=== PATIENT | male | born 1965 | race Caucasian/White ===

== ENCOUNTER 2023-07-05 00:02 | Inpatient (IN) | payer BC ==
[~2023-07-05] VITALS: Ht 182.9 cm; Wt 68.0 kg
[2023-07-05 00:15] VITALS: BP_SYST 201; PULSE 80; RESP 20; TEMP 96; O2SAT 99
[2023-07-05 00:57] LABS: BASOPHILS % (AUTO) 0.4 % (0.0-2.0); EOSINOPHILS # (AUTO) 0.1 K/uL (0.0-0.4); EOSINOPHILS % (AUTO) 1.1 % (0.0-4.0); HEMATOCRIT 39.8 % (36-54); HEMOGLOBIN 13.8 g/dL (14.0-18.0); LYMPHOCYTES # (AUTO) 1.8 K/uL (1.0-5.5); LYMPHOCYTES % (AUTO) 14.4 % (20.5-51.5); MEAN CORPUSCULAR HEMOGLOBIN 32 pg (27-31); MEAN CORPUSCULAR HGB CONC 35 % (32-36); MEAN CORPUSCULAR VOLUME 91 fL (79.0-98.0); MONOCYTES # (AUTO) 0.8 K/uL (0.0-1.0); MONOCYTES % (AUTO) 6.1 % (1.7-9.3); NEUTROPHILS # (AUTO) 9.7 K/uL (1.8-7.7); PLATELET COUNT (AUTO) 186 K/uL (130-430); RED BLOOD CELL COUNT(AUTO) 4.35 MIL/uL (4.2-6.2); RED CELL DISTRIBUTION WIDTH 13.3 % (9.0-15.0); WHITE BLOOD COUNT (AUTO) 12.4 K/uL (4.8-10.8)
[2023-07-05 01:02] LABS: BILIRUBIN,URINE NEGATIVE (NEGATIVE); CLARITY/URINE SL CLOUDY (CLEAR); COLOR,URINE YELLOW (YELLOW); GLUCOSE,URINE NEGATIVE (NEGATIVE); KETONES,URINE NEGATIVE (NEGATIVE); LEUKOCYTE ESTERASE ,URINE NEGATIVE (NEGATIVE); NITRITE, URINE NEGATIVE (NEGATIVE); PROTEIN URINE 1+ (NEGATIVE); UROBILINOGEN,URINE 0.2 (0.2-1.0)
[2023-07-05 01:03] LABS: CALCIUM 8.6 mg/dL (8.4-11.0); CREATININE 1.15 mg/dL (0.55-1.30); POTASSIUM 3.4 mmol/L (3.5-5.1)
[2023-07-05 01:08] LABS: ALBUMIN 3.8 g/dL (3.4-4.8); BILIRUBIN,DIRECT 0.1 mg/dL (0.0-0.3); TOTAL BILIRUBIN 0.2 mg/dL (0.0-1.0); TOTAL PROTEIN, SERUM 7.6 g/dL (6.4-8.3)
[2023-07-05 01:13] LABS: BLOOD, URINE TRACE (NEGATIVE)
[2023-07-05 01:14] LABS: WBC,URINE 0-3 /HPF (0-3)
[2023-07-05 01:15] LABS: BACTERIA,URINE None Seen /HPF (None Seen)
[2023-07-05] MEDS: ONDANSETRON HCL 4 MG/2 ML VIAL IVP ONE (01:47)
[2023-07-05] MEDS: MORPHINE 4 MG INJ. 4 MG/ML VIAL IVP ONE ×2 (01:47→02:14)
[2023-07-05] MEDS: KETOROLAC TROMETHAMINE 15 MG VIAL IVP ONE (01:48)
[2023-07-05] MEDS: HYDROmorphone 1 MG/ML INJ. CARTRIDGE IVP ONE ×2 (04:00→06:23)
[2023-07-05] MEDS: PIPERACILLIN/TAZO 3.375 GM in NS 50 ML IV ONE (05:40)
[2023-07-05] MEDS ORDERED: PIPERACILLIN/TAZOBACTAM 3.375 GM/VIAL (ZOSYN) IV ONE (05:42)
[2023-07-05] MEDS ORDERED: KETAMINE HCL IN 0.9 % NACL 50 MG/5 ML SYRINGE ONE (06:32)
[2023-07-05] MEDS: KETAMINE 30 MG/3 ML SYRINGE 30 MG in NS 100 ML IV ONE (06:46)
[2023-07-05] MEDS ORDERED: ACETAMINOPHEN 325 MG TABLET PO PRN ×2 (10:15)
[2023-07-05] MEDS ORDERED: ONDANSETRON HCL 4 MG/2 ML VIAL IVP PRN ×2 (10:15→13:15)
[2023-07-05] MEDS ORDERED: IPRATROPIUM BROM 0.5 MG/2.5 ML VIAL.NEB (ATROVENT) INH PRN (10:15)
[2023-07-05] MEDS ORDERED: NALOXONE HCL 0.4 MG/ML AMP (NARCAN) IVP PRN ×2 (10:15→13:15)
[2023-07-05] MEDS: amLODIPine BESYLATE 5 MG TABLET PO ONE (10:56)
[2023-07-05 11:08] VITALS: PULSE 68; O2SAT 97
[2023-07-05 11:26] VITALS: BP_SYST 161; PULSE 75; RESP 20; TEMP 98.4
[2023-07-05] MEDS: MORPHINE 2 MG/ML INJ. SYRINGE IVP PRN (11:54)
[2023-07-05 12:03] VITALS: O2SAT 98
[2023-07-05] MEDS ORDERED: fentaNYL CITRATE/PF 100 MCG/2 ML AMP ONE (12:43)
[2023-07-05] MEDS ORDERED: MIDAZOLAM HCL 2 MG/2 ML VIAL (VERSED) ONE (12:44)
[2023-07-05] MEDS ORDERED: ceFAZolin SODIUM 2 GM VIAL ONE (12:45)
[2023-07-05] MEDS ORDERED: GLYCOPYRROLATE 0.2 MG/ML VIAL ONE (12:45)
[2023-07-05] MEDS ORDERED: NEOSTIGMINE METHYLSULFATE 1 MG/ML, 10 ML VIAL ONE (12:45)
[2023-07-05] MEDS ORDERED: SUCCINYLCHOLINE CHLORIDE 20 MG/ML(QUELICIN) ONE (12:45)
[2023-07-05] MEDS ORDERED: DEXAMETHASONE SOD PHOSPHATE 4 MG/ML VIAL ONE (12:45)
[2023-07-05] MEDS ORDERED: PROPOFOL 200MG/ 20ML VIAL (DIPRIVAN) IV ONE (12:45)
[2023-07-05] MEDS ORDERED: NS 1000 ML IV.SOLN IV ONE (12:45)
[2023-07-05] MEDS ORDERED: ONDANSETRON HCL 4 MG/2 ML VIAL ONE (12:45)
[2023-07-05] MEDS ORDERED: ROCURONIUM BROMIDE 10 MG/ML (ZEMURON) ONE (12:45)
[2023-07-05] MEDS ORDERED: NS IRRIG SOLN 1000 ML IR ONE (12:45)
[2023-07-05] MEDS ORDERED: BUPIVACAINE /PF 0.25% 30 ML VIAL INJ ONE (12:45)
[2023-07-05] MEDS ORDERED: fentaNYL CITRATE/PF 100 MCG/2 ML AMP IVP PRN ×2 (13:15)
[2023-07-05] MEDS ORDERED: HYDROmorphone 1 MG/ML INJ. CARTRIDGE IVP PRN (13:15)
[2023-07-05] MEDS: NACL 0.9% 1,000 ML IV ONE (13:15)
[2023-07-05] MEDS: HYDROcodone/ACETAMIN 5-325 MG TAB (NORCO/ VICODIN) PO PRN (18:35)
[2023-07-05 20:00] VITALS: BP_SYST 156; PULSE 102; RESP 20; TEMP 98.7; O2SAT 94
[2023-07-06] VITALS: BP_SYST 128; PULSE 74; RESP 20; TEMP 98.1; O2SAT 95
[2023-07-06 05:55] LABS: BASOPHILS % (AUTO) 0.1 % (0.0-2.0); HEMATOCRIT 38.8 % (36-54); HEMOGLOBIN 13.4 g/dL (14.0-18.0); LYMPHOCYTES # (AUTO) 0.9 K/uL (1.0-5.5); LYMPHOCYTES % (AUTO) 4.6 % (20.5-51.5); MEAN CORPUSCULAR HEMOGLOBIN 32 pg (27-31); MEAN CORPUSCULAR HGB CONC 35 % (32-36); MEAN CORPUSCULAR VOLUME 92 fL (79.0-98.0); MONOCYTES # (AUTO) 1.2 K/uL (0.0-1.0); MONOCYTES % (AUTO) 6.4 % (1.7-9.3); NEUTROPHILS # (AUTO) 17.2 K/uL (1.8-7.7); NEUTROPHILS % (AUTO) 88.9 % (40.0-70.0); PLATELET COUNT (AUTO) 186 K/uL (130-430); WHITE BLOOD COUNT (AUTO) 19.4 K/uL (4.8-10.8)
[2023-07-06 06:22] LABS: ALBUMIN 3.1 g/dL (3.4-4.8); CALCIUM 7.8 mg/dL (8.4-11.0); CREATININE 0.97 mg/dL (0.55-1.30); POTASSIUM 3.8 mmol/L (3.5-5.1); TOTAL BILIRUBIN 0.7 mg/dL (0.0-1.0); TOTAL PROTEIN, SERUM 6.8 g/dL (6.4-8.3)
[2023-07-06 08:57] VITALS: BP_SYST 154; PULSE 83; RESP 18; TEMP 98.2; O2SAT 98
[2023-07-06 09:00] VITALS: O2SAT 98
[2023-07-06] MEDS: amLODIPine BESYLATE 5 MG TABLET PO SCH (09:30)
[2023-07-06] MEDS: HYDROcodone/ACETAMIN 10-325 MG TAB PO PRN (09:30)
[2023-07-06 12:30] VITALS: BP_SYST 139; PULSE 92; RESP 18; TEMP 98.4; O2SAT 96
[2023-07-06] MEDS: CEFAZOLIN SODIUM 500 MG in D5W 50 ML IV SCH (12:47)
[2023-07-06 16:55] VITALS: BP_SYST 131; PULSE 81; RESP 18; TEMP 97.9; O2SAT 96
[2023-07-06 20:16] VITALS: BP_SYST 129; PULSE 80; RESP 19; TEMP 97; O2SAT 98
[2023-07-07 00:13] VITALS: BP_SYST 128; PULSE 81; RESP 17; TEMP 97.2; O2SAT 97
[2023-07-07 01:23] VITALS: BP_SYST 128; PULSE 78; RESP 18; TEMP 97.4; O2SAT 98
[2023-07-07 05:40] LABS: BASOPHILS % (AUTO) 0.1 % (0.0-2.0); EOSINOPHILS # (AUTO) 0.1 K/uL (0.0-0.4); EOSINOPHILS % (AUTO) 0.8 % (0.0-4.0); HEMATOCRIT 38.8 % (36-54); HEMOGLOBIN 13.5 g/dL (14.0-18.0); LYMPHOCYTES # (AUTO) 2.5 K/uL (1.0-5.5); LYMPHOCYTES % (AUTO) 16.8 % (20.5-51.5); MEAN CORPUSCULAR HEMOGLOBIN 32 pg (27-31); MEAN CORPUSCULAR HGB CONC 35 % (32-36); MEAN CORPUSCULAR VOLUME 92 fL (79.0-98.0); MONOCYTES # (AUTO) 1.3 K/uL (0.0-1.0); MONOCYTES % (AUTO) 8.8 % (1.7-9.3); NEUTROPHILS # (AUTO) 10.9 K/uL (1.8-7.7); NEUTROPHILS % (AUTO) 73.5 % (40.0-70.0); PLATELET COUNT (AUTO) 174 K/uL (130-430); RED BLOOD CELL COUNT(AUTO) 4.22 MIL/uL (4.2-6.2); RED CELL DISTRIBUTION WIDTH 13.3 % (9.0-15.0); WHITE BLOOD COUNT (AUTO) 14.8 K/uL (4.8-10.8)
[2023-07-07 06:17] LABS: CREATININE 0.91 mg/dL (0.55-1.30); POTASSIUM 3.5 mmol/L (3.5-5.1); TOTAL BILIRUBIN 0.6 mg/dL (0.0-1.0); TOTAL PROTEIN, SERUM 6.7 g/dL (6.4-8.3)
[2023-07-07 07:00] VITALS: O2SAT 97
[2023-07-07 08:00] VITALS: BP_SYST 141; PULSE 79; RESP 18; TEMP 98.2; O2SAT 96
[2023-07-07 10:52] VITALS: BP_SYST 150; PULSE 83; RESP 17; TEMP 98.5; O2SAT 96
[2023-07-07] MEDS ORDERED: AMLO5TAB4 PO (14:41)
[2023-07-07] MEDS ORDERED: HYDR-3919 PO (14:41)
[2023-07-07] MEDS ORDERED: LEVO-62 PO (14:50)
[2023-07-07] MEDS ORDERED: DOCU-144 PO (14:54)
[2023-07-07 15:21] VITALS: BP_SYST 137; PULSE 79; RESP 18; TEMP 98.2; O2SAT 96
[2023-07-07] MEDS: BISACODYL 10 MG/SUPPOSITORY RC ONE (16:08)
[2023-07-07] MEDS: DOCUSATE SODIUM 100 MG CAPSULE PO ONE (16:08)
== END 2023-07-07 18:00 | disposition home or self-care (01) | DRG 419 ==
LOC: SED 00:02 → SMU 06:38
PROVIDERS: ADMIT Family Medicine; ATTEND Family Medicine
PROC: 0FT44ZZ Resection of Gallbladder, Percutaneous Endoscopic Approach (ICD-10-PCS; principal; 2023-07-05 12:45)
DX: K81.0 Acute cholecystitis (principal); I16.0 Hypertensive urgency; K74.60 Unspecified cirrhosis of liver; I10 Essential (primary) hypertension; D72.829 Elevated white blood cell count, unspecified; Z79.899 Other long term (current) drug therapy
CPT/HCPCS: 36415; 76705; 80048; 80053; 80076; 81000; 81001; 81015; 83605; 83690; 85025; 86886; 86900; 86901; 87040; 87081; 88304; 94760; 99285; C1727; J0330; J0690; J1100; J1170; J1885; J2270; J2405; J2543; J2704; J2710; J3010; J3465; J3490; J7030; J7060